=== PATIENT | male | born 1940 | race Caucasian/White ===

== ENCOUNTER 2018-03-09 07:29 | Inpatient (IN) | payer MEDICARE ==
[~2018-03-09] VITALS: Ht 170.2 cm; Wt 85.5 kg
[2018-03-09] MEDS ORDERED: IPRATROPIUM BROMIDE (0.02%) 0.5MG/2.5ML NEB HHN STA ×2 (07:49→09:44)
[2018-03-09] MEDS ORDERED: ALBUTEROL (0.083%) 2.5MG/3ML NEB HHN STA ×2 (07:49→09:44)
[2018-03-09] MEDS ORDERED: METHYLPREDNISOLONE SOD SUCC 125 MG/2 ML VIAL IV STA ×2 (07:49→09:44)
[2018-03-09] MEDS ORDERED: SODIUM CHLORIDE 0.9% 1,000 ML IV ONE (07:54)
[2018-03-09 08:00] LABS: BASOPHILS % 0.5 % (0.0-2.0); EOSINOPHILS % 0.5 % (0.0-5.0); HEMATOCRIT. 38.6 % (42.0-52.0); HEMOGLOBIN. 12.7 g/dL (14.0-18.0); LYMPHOCYTES % 7.8 % (20.0-50.0); MEAN CORPUSCULAR HEMOGLOBIN 31.2 pg (28.0-32.0); MEAN CORPUSCULAR VOLUME 94.6 fL (80.0-94.0); MEAN PLATELET VOLUME 8.7 fl (7.4-10.4); MONOCYTES % 10.8 % (2.0-8.0); NEUTROPHILS % 80.4 % (40.0-76.0); PLATELET 250 x1000/uL (130-400); RED BLOOD CELL COUNT 4.08 mill/uL (4.7-6.1); RED CELL DISTRIBUTION WIDTH 13.6 % (11.6-14.6)
[2018-03-09 08:07] LABS: INR 1.1; PROTHROMBIN TIME 11.3 sec (9.1-11.1)
[2018-03-09 08:20] LABS: BG BASE EXCESS 8.5 mmol/L (-2.0-2.0); BG CARBOXYHEMOGLOBIN 1.7 % (0.5-1.5); BG DEOXYHEMOGLOBIN 5.2 % (0.0-5.0); BG FRACTION INSPIRED OXYGEN 36; BG HCO3 ACT 37.2 mmol/L (22.0-26.0); BG METHEMOGLOBIN 0.3 % (0.0-1.5); BG OXYGEN SATURATION 94.7 % (92.0-98.5); BG OXYHEMOGLOBIN 92.8 % (94.0-97.0); BG PCO2 72.2 mmHg (35.0-45.0); BG PO2 79.1 mmHg (75.0-100.0); BG SAMPLE SITE RIGHT RADIAL; BG TOTAL HEMOGLOBIN 13.5 g/dL (12.0-18.0); BG VENT MODE NASAL CANNULA
[2018-03-09 08:42] LABS: ETHANOL BLOOD < 10 mg/dL
[2018-03-09 08:45] LABS: LDL CHOLESTEROL 36 mg/dL (5-100)
[2018-03-09 08:50] LABS: CHLORIDE 97 mEq/L (98-107)
[2018-03-09] MEDS ORDERED: ALBUTEROL (0.083%) 2.5MG/3ML NEB ONE (08:53)
[2018-03-09] MEDS ORDERED: IPRATROPIUM BROMIDE (0.02%) 0.5MG/2.5ML NEB ONE (08:54)
[2018-03-09] MEDS ORDERED: ASPIRIN 325MG TABLET PO ONE (09:00)
[2018-03-09] MEDS ORDERED: LEVOFLOXACIN 750MG PREMIX 150 ML IV ONE (09:45)
[2018-03-09 10:13] LABS: CLARITY URINE CLEAR (CLEAR); COLOR URINE YELLOW (YELLOW); KETONES URINE TRACE (NEGATIVE); LEUKOCYTE ESTERASE URINE NEGATIVE (NEGATIVE); NITRITE URINE NEGATIVE (NEGATIVE); OCCULT BLOOD URINE 2+ (NEGATIVE); PROTEIN URINE 3+ (NEGATIVE); SPECIFIC GRAVITY URINE 1.032 (1.005-1.030)
[2018-03-09 10:30] LABS: CANNABINOID URINE SCREEN NEGATIVE (NEGATIVE); OPIATES URINE SCREEN NEGATIVE (NEGATIVE); PHENCYCLIDINE URINE SCREEN NEGATIVE (NEGATIVE)
[2018-03-09 10:31] LABS: *AMPHETAMINES SCREEN URINE NEGATIVE (NEGATIVE); *BARBITURATES SCREEN URINE NEGATIVE (NEGATIVE); *BENZODIAZEPINES SCREEN URINE NEGATIVE (NEGATIVE); *COCAINE SCREEN URINE NEGATIVE (NEGATIVE); METHADONE URINE SCREEN NEGATIVE (NEGATIVE)
[2018-03-09] MEDS ORDERED: MAGNESIUM/ALUMINUM HYDROXIDE/SIMETHICONE 30ML UDC PO PRN (11:00)
[2018-03-09] MEDS ORDERED: NITROGLYCERIN 0.4MG TABLET SL SL PRN (11:00)
[2018-03-09] MEDS ORDERED: ACETAMINOPHEN 325MG TABLET PO PRN (11:00)
[2018-03-09] MEDS ORDERED: DOCUSATE SODIUM 100MG CAPSULE PO PRN (11:00)
[2018-03-09] MEDS ORDERED: TRAMADOL 50MG TABLET PO PRN (11:00)
[2018-03-09] MEDS ORDERED: DEXTROSE 50% WATER 50ML SYRINGE IV PRN (11:00)
[2018-03-09] MEDS ORDERED: ONDANSETRON HCL 4MG/2ML INJ IV PRN (11:00)
[2018-03-09] MEDS ORDERED: IPRATROPIUM/ALBUTEROL 0.5-3(2.5)MG/3ML NEB INH PRN (11:00)
[2018-03-09 11:53] LABS: T4 FREE 1.68 ng/dL (0.76-1.46)
[2018-03-09] MEDS: BLOOD SUGAR DIAGNOSTIC STRIP TEST SCH ×3 (13:00→21:50)
[2018-03-09] MEDS: INSULIN LISPRO 100 UNITS/ML SUBCUT SCH ×3 (13:19→21:58)
[2018-03-09] MEDS: ENOXAPARIN 40MG/0.4ML SYR SUBCUT SCH (14:26)
[2018-03-09] MEDS: FAMOTIDINE 20MG TABLET PO SCH (14:26)
[2018-03-09 15:30] VITALS: BP 147/75
[2018-03-09 16:00] VITALS: BP 155/74
[2018-03-09 17:29] LABS: CREATINE KINASE 77 IU/L (39-308)
[2018-03-09 17:30] LABS: CREATINE KINASE MB FRACTION 1.2 ng/mL (0.5-3.6)
[2018-03-09 20:00] VITALS: BP 145/72
[2018-03-09] MEDS: IPRATROPIUM/ALBUTEROL 0.5-3(2.5)MG/3ML NEB HHN SCH (20:40)
[2018-03-09] MEDS ORDERED: ZOLPIDEM TARTRATE 5MG TABLET PO PRN (21:00)
[2018-03-09] MEDS ORDERED: INSULIN GLARGINE UD 100 UNITS/ML SYR SUBCUT SCH (22:00)
[2018-03-09] MEDS: ASCORBIC ACID 500 MG TABLET PO SCH (22:00)
[2018-03-09] MEDS: METHYLPREDNISOLONE SOD SUCC 125 MG/2 ML VIAL IV SCH (22:01)
[2018-03-09 22:20] LABS: CREATINE KINASE 82 IU/L (39-308)
[2018-03-09 22:21] LABS: CREATINE KINASE MB FRACTION 1.3 ng/mL (0.5-3.6)
[2018-03-10] VITALS: BP 140/65
[2018-03-10] MEDS: IPRATROPIUM/ALBUTEROL 0.5-3(2.5)MG/3ML NEB HHN SCH ×4 (01:05→20:57)
[2018-03-10 04:00] VITALS: BP 125/63
[2018-03-10] MEDS: METHYLPREDNISOLONE SOD SUCC 125 MG/2 ML VIAL IV SCH ×2 (07:30→14:30)
[2018-03-10] MEDS: BLOOD SUGAR DIAGNOSTIC STRIP TEST SCH ×4 (07:41→21:00)
[2018-03-10] MEDS: INSULIN LISPRO 100 UNITS/ML SUBCUT SCH ×5 (07:41→22:29)
[2018-03-10 08:04] VITALS: BP 111/52
[2018-03-10] MEDS: ASCORBIC ACID 500 MG TABLET PO SCH ×2 (08:42→22:20)
[2018-03-10] MEDS: ASPIRIN 325MG EC TABLET PO SCH (08:42)
[2018-03-10] MEDS: ZINC SULFATE 220 MG ( 50 ) CAPSULE PO SCH (08:42)
[2018-03-10] MEDS: ENOXAPARIN 40MG/0.4ML SYR SUBCUT SCH (08:42)
[2018-03-10] MEDS: FAMOTIDINE 20MG TABLET PO SCH (08:42)
[2018-03-10] MEDS ORDERED: INFLUENZA VIRUS VACCINE(AFLURIA) 0.5ML SYR IM ONE (09:00)
[2018-03-10 16:20] VITALS: BP 132/56
[2018-03-10] MEDS: NICOTINE 14MG PATCH TD SCH (17:11)
[2018-03-10] MEDS: PREDNISONE 20MG TABLET PO SCH (17:11)
[2018-03-10 20:00] VITALS: BP 158/70
[2018-03-10] MEDS ORDERED: INSULIN GLARGINE UD 100 UNITS/ML SYR SUBCUT SCH (22:00)
[2018-03-10] MEDS: GUAIFENESIN 600MG ER TABLET PO SCH (22:20)
[2018-03-10] MEDS: INSULIN GLARGINE UD 100 UNITS/ML SYR SUBCUT SCH (22:29)
[2018-03-11] VITALS: BP 151/66
[2018-03-11] MEDS: IPRATROPIUM/ALBUTEROL 0.5-3(2.5)MG/3ML NEB HHN SCH ×4 (01:09→19:47)
[2018-03-11 04:00] VITALS: BP 152/75
[2018-03-11] MEDS: BLOOD SUGAR DIAGNOSTIC STRIP TEST SCH ×4 (06:02→21:59)
[2018-03-11] MEDS: INSULIN LISPRO 100 UNITS/ML SUBCUT SCH ×7 (06:09→22:11)
[2018-03-11 07:46] LABS: HEMATOCRIT. 37.6 % (42.0-52.0); HEMOGLOBIN. 12.6 g/dL (14.0-18.0); MEAN CORPUSCULAR HEMOGLOBIN 31.3 pg (28.0-32.0); MEAN CORPUSCULAR VOLUME 93.4 fL (80.0-94.0); MEAN PLATELET VOLUME 9.4 fl (7.4-10.4); PLATELET 259 x1000/uL (130-400); RED BLOOD CELL COUNT 4.02 mill/uL (4.7-6.1); RED CELL DISTRIBUTION WIDTH 13.7 % (11.6-14.6)
[2018-03-11] MEDS: PREDNISONE 20MG TABLET PO SCH ×2 (08:39→17:12)
[2018-03-11] MEDS: FAMOTIDINE 20MG TABLET PO SCH (08:39)
[2018-03-11] MEDS: ZINC SULFATE 220 MG ( 50 ) CAPSULE PO SCH (08:39)
[2018-03-11] MEDS: ASCORBIC ACID 500 MG TABLET PO SCH ×2 (08:39→21:59)
[2018-03-11] MEDS: GUAIFENESIN 200MG/10ML SUGAR FREE UDC PO PRN (08:39)
[2018-03-11] MEDS: ENOXAPARIN 40MG/0.4ML SYR SUBCUT SCH (08:40)
[2018-03-11] MEDS: ASPIRIN 325MG EC TABLET PO SCH (08:49)
[2018-03-11] MEDS: GUAIFENESIN 600MG ER TABLET PO SCH ×2 (08:49→21:59)
[2018-03-11] MEDS: NICOTINE 14MG PATCH TD SCH (08:50)
[2018-03-11] MEDS: BUDESONIDE 0.5MG/2ML NEB HHN SCH ×2 (09:24→21:00)
[2018-03-11 11:04] VITALS: BP 149/67
[2018-03-11 12:00] VITALS: BP 155/73
[2018-03-11] MEDS: LEVOFLOXACIN 750MG PREMIX 150 ML IV SCH (13:35)
[2018-03-11 16:00] VITALS: BP 136/79
[2018-03-11 20:00] VITALS: BP 100/66
[2018-03-11 20:16] LABS: PLATELET ESTIMATE NORMAL
[2018-03-11] MEDS: INSULIN GLARGINE UD 100 UNITS/ML SYR SUBCUT SCH (22:11)
[2018-03-12] VITALS (7 sets, daily range): BP systolic 137–170; BP diastolic 60–91
[2018-03-12] MEDS: CLONIDINE 0.1MG TABLET PO PRN ×3 (01:13→14:36)
[2018-03-12] MEDS: IPRATROPIUM/ALBUTEROL 0.5-3(2.5)MG/3ML NEB HHN SCH ×4 (01:47→20:35)
[2018-03-12] MEDS: BLOOD SUGAR DIAGNOSTIC STRIP TEST SCH ×4 (06:07→21:14)
[2018-03-12] MEDS: INSULIN LISPRO 100 UNITS/ML SUBCUT SCH ×7 (06:22→21:26)
[2018-03-12] MEDS: BUDESONIDE 0.5MG/2ML NEB HHN SCH ×2 (08:12→20:35)
[2018-03-12] MEDS: FAMOTIDINE 20MG TABLET PO SCH (09:15)
[2018-03-12] MEDS: ZINC SULFATE 220 MG ( 50 ) CAPSULE PO SCH (09:16)
[2018-03-12] MEDS: PREDNISONE 20MG TABLET PO SCH (09:16)
[2018-03-12] MEDS: NICOTINE 14MG PATCH TD SCH (09:16)
[2018-03-12] MEDS: GUAIFENESIN 600MG ER TABLET PO SCH ×2 (09:16→21:19)
[2018-03-12] MEDS: ENOXAPARIN 40MG/0.4ML SYR SUBCUT SCH (09:16)
[2018-03-12] MEDS: ASPIRIN 325MG EC TABLET PO SCH (09:16)
[2018-03-12] MEDS: ASCORBIC ACID 500 MG TABLET PO SCH ×2 (09:16→21:19)
[2018-03-12 09:34] LABS: BG BASE EXCESS 11.5 mmol/L (-2.0-2.0); BG CARBOXYHEMOGLOBIN 1.2 % (0.5-1.5); BG DEOXYHEMOGLOBIN 14.3 % (0.0-5.0); BG FRACTION INSPIRED OXYGEN 21; BG HCO3 ACT 38.1 mmol/L (22.0-26.0); BG METHEMOGLOBIN 0.3 % (0.0-1.5); BG OXYGEN SATURATION 85.5 % (92.0-98.5); BG OXYHEMOGLOBIN 84.2 % (94.0-97.0); BG PCO2 58.1 mmHg (35.0-45.0); BG PH 7.435 (7.350-7.450); BG PO2 49.9 mmHg (75.0-100.0); BG SAMPLE SITE RIGHT RADIAL; BG TOTAL HEMOGLOBIN 13.7 g/dL (12.0-18.0); BG VENT MODE ROOM AIR
[2018-03-12] MEDS: GUAIFENESIN 200MG/10ML SUGAR FREE UDC PO PRN (17:28)
[2018-03-12] MEDS: INSULIN GLARGINE UD 100 UNITS/ML SYR SUBCUT SCH (21:26)
[2018-03-12 21:54] LABS: FOLIC ACID (FOLATE) SERUM 5.8 ng/mL (>5.38)
[2018-03-13] VITALS: BP 162/77
[2018-03-13] MEDS: CLONIDINE 0.1MG TABLET PO PRN (00:20)
[2018-03-13 04:00] VITALS: BP 151/81
[2018-03-13] MEDS: BLOOD SUGAR DIAGNOSTIC STRIP TEST SCH ×4 (06:01→20:46)
[2018-03-13] MEDS: INSULIN LISPRO 100 UNITS/ML SUBCUT SCH ×7 (06:01→20:55)
[2018-03-13 08:00] VITALS: BP 162/76
[2018-03-13] MEDS: IPRATROPIUM/ALBUTEROL 0.5-3(2.5)MG/3ML NEB HHN SCH ×3 (08:29→21:04)
[2018-03-13] MEDS: BUDESONIDE 0.5MG/2ML NEB HHN SCH ×4 (08:29→12:21)
[2018-03-13] MEDS: ZINC SULFATE 220 MG ( 50 ) CAPSULE PO SCH (09:53)
[2018-03-13] MEDS: FAMOTIDINE 20MG TABLET PO SCH (09:53)
[2018-03-13] MEDS: PREDNISONE 20MG TABLET PO SCH (09:53)
[2018-03-13] MEDS: ASPIRIN 325MG EC TABLET PO SCH (09:53)
[2018-03-13] MEDS: GUAIFENESIN 600MG ER TABLET PO SCH ×2 (09:53→20:35)
[2018-03-13] MEDS: ASCORBIC ACID 500 MG TABLET PO SCH ×2 (09:53→20:35)
[2018-03-13] MEDS: NICOTINE 14MG PATCH TD SCH (09:54)
[2018-03-13] MEDS: ENOXAPARIN 40MG/0.4ML SYR SUBCUT SCH (09:55)
[2018-03-13 12:00] VITALS: BP 167/76
[2018-03-13] MEDS: LEVOFLOXACIN 750MG PREMIX 150 ML IV SCH (12:48)
[2018-03-13 16:00] VITALS: BP 142/69
[2018-03-13 20:00] VITALS: BP 155/71
[2018-03-13] MEDS: INSULIN GLARGINE UD 100 UNITS/ML SYR SUBCUT SCH (21:58)
[2018-03-14] VITALS: BP 148/60
[2018-03-14] MEDS: IPRATROPIUM/ALBUTEROL 0.5-3(2.5)MG/3ML NEB HHN SCH ×4 (00:53→20:58)
[2018-03-14 04:00] VITALS: BP 138/52
[2018-03-14] MEDS: BLOOD SUGAR DIAGNOSTIC STRIP TEST SCH ×4 (06:12→20:57)
[2018-03-14] MEDS: INSULIN LISPRO 100 UNITS/ML SUBCUT SCH ×6 (06:41→21:11)
[2018-03-14 08:00] VITALS: BP 135/69
[2018-03-14] MEDS: ASCORBIC ACID 500 MG TABLET PO SCH ×2 (10:20→20:41)
[2018-03-14] MEDS: ZINC SULFATE 220 MG ( 50 ) CAPSULE PO SCH (10:20)
[2018-03-14] MEDS: PREDNISONE 20MG TABLET PO SCH (10:20)
[2018-03-14] MEDS: GUAIFENESIN 600MG ER TABLET PO SCH ×2 (10:20→20:41)
[2018-03-14] MEDS: FAMOTIDINE 20MG TABLET PO SCH (10:20)
[2018-03-14] MEDS: ENOXAPARIN 40MG/0.4ML SYR SUBCUT SCH (10:21)
[2018-03-14] MEDS: NICOTINE 14MG PATCH TD SCH (10:22)
[2018-03-14] MEDS: ASPIRIN 325MG EC TABLET PO SCH (10:28)
[2018-03-14 12:00] VITALS: BP_SYST 107; BP_SYST 144; BP_DIAS 62; BP_DIAS 72
[2018-03-14 16:00] VITALS: BP 140/73
[2018-03-14] MEDS: GUAIFENESIN 200MG/10ML SUGAR FREE UDC PO PRN (18:30)
[2018-03-14 20:00] VITALS: BP 141/75
[2018-03-14] MEDS: INSULIN GLARGINE UD 100 UNITS/ML SYR SUBCUT SCH (21:11)
[2018-03-15] MEDS: IPRATROPIUM/ALBUTEROL 0.5-3(2.5)MG/3ML NEB HHN SCH ×4 (02:03→21:34)
[2018-03-15 04:00] VITALS: BP 125/63
[2018-03-15] MEDS: INSULIN LISPRO 100 UNITS/ML SUBCUT SCH ×7 (06:56→20:47)
[2018-03-15] MEDS: BLOOD SUGAR DIAGNOSTIC STRIP TEST SCH ×4 (06:56→20:48)
[2018-03-15 07:30] VITALS: BP 152/81
[2018-03-15] MEDS: FAMOTIDINE 20MG TABLET PO SCH (09:19)
[2018-03-15] MEDS: ASCORBIC ACID 500 MG TABLET PO SCH ×2 (09:19→20:43)
[2018-03-15] MEDS: ZINC SULFATE 220 MG ( 50 ) CAPSULE PO SCH (09:19)
[2018-03-15] MEDS: GUAIFENESIN 600MG ER TABLET PO SCH ×2 (09:19→20:43)
[2018-03-15] MEDS: ENOXAPARIN 40MG/0.4ML SYR SUBCUT SCH (09:20)
[2018-03-15] MEDS: ASPIRIN 325MG EC TABLET PO SCH (09:20)
[2018-03-15] MEDS: PREDNISONE 20MG TABLET PO SCH (09:32)
[2018-03-15] MEDS: NICOTINE 14MG PATCH TD SCH (09:32)
[2018-03-15] MEDS: LEVOFLOXACIN 750MG PREMIX 150 ML IV SCH (09:40)
[2018-03-15 09:43] LABS: HEMATOCRIT 40.6 % (42.0-52.0); HEMOGLOBIN 13.8 g/dL (14.0-18.0); MEAN CORPUSCULAR HEMOGLOBIN 31.6 pg (28.0-32.0); MEAN CORPUSCULAR VOLUME 93.2 fL (80.0-94.0); PLATELET 256 x1000/uL (130-400); RED BLOOD CELL COUNT 4.35 mill/uL (4.7-6.1); RED CELL DISTRIBUTION WIDTH 13.7 % (11.6-14.6)
[2018-03-15 12:00] VITALS: BP 150/80
[2018-03-15 12:20] LABS: CHLORIDE 102 mEq/L (98-107)
[2018-03-15 15:30] VITALS: BP 148/75
[2018-03-15 20:00] VITALS: BP 151/67
[2018-03-15] MEDS: INSULIN GLARGINE UD 100 UNITS/ML SYR SUBCUT SCH (20:48)
[2018-03-16] VITALS (7 sets, daily range): BP systolic 135–153; BP diastolic 67–82
[2018-03-16] MEDS: IPRATROPIUM/ALBUTEROL 0.5-3(2.5)MG/3ML NEB HHN SCH ×4 (02:06→20:11)
[2018-03-16] MEDS: INSULIN LISPRO 100 UNITS/ML SUBCUT SCH ×7 (05:52→21:30)
[2018-03-16] MEDS: BLOOD SUGAR DIAGNOSTIC STRIP TEST SCH ×4 (05:52→21:31)
[2018-03-16 07:41] LABS: HEMATOCRIT 37.7 % (42.0-52.0); HEMOGLOBIN 12.8 g/dL (14.0-18.0); MEAN CORPUSCULAR HEMOGLOBIN 31.9 pg (28.0-32.0); MEAN CORPUSCULAR VOLUME 93.7 fL (80.0-94.0); PLATELET 221 x1000/uL (130-400); RED BLOOD CELL COUNT 4.02 mill/uL (4.7-6.1); RED CELL DISTRIBUTION WIDTH 13.9 % (11.6-14.6)
[2018-03-16] MEDS: ZINC SULFATE 220 MG ( 50 ) CAPSULE PO SCH (09:52)
[2018-03-16] MEDS: FAMOTIDINE 20MG TABLET PO SCH (09:52)
[2018-03-16] MEDS: NICOTINE 14MG PATCH TD SCH (09:52)
[2018-03-16] MEDS: ENOXAPARIN 40MG/0.4ML SYR SUBCUT SCH (09:52)
[2018-03-16] MEDS: ASPIRIN 325MG EC TABLET PO SCH (09:52)
[2018-03-16] MEDS: PREDNISONE 20MG TABLET PO SCH (09:52)
[2018-03-16] MEDS: ASCORBIC ACID 500 MG TABLET PO SCH ×2 (09:52→21:29)
[2018-03-16] MEDS: GUAIFENESIN 600MG ER TABLET PO SCH ×2 (09:55→21:29)
[2018-03-16] MEDS: LEVOFLOXACIN 500MG PREMIX 100 ML IV SCH (09:56)
[2018-03-16] MEDS: INSULIN GLARGINE UD 100 UNITS/ML SYR SUBCUT SCH (21:31)
[2018-03-17] VITALS: BP 164/81
[2018-03-17] MEDS: IPRATROPIUM/ALBUTEROL 0.5-3(2.5)MG/3ML NEB HHN SCH ×3 (01:49→14:33)
[2018-03-17 04:30] VITALS: BP 162/78
[2018-03-17] MEDS: CLONIDINE 0.1MG TABLET PO PRN (04:56)
[2018-03-17] MEDS: INSULIN LISPRO 100 UNITS/ML SUBCUT SCH ×6 (06:35→16:56)
[2018-03-17] MEDS: BLOOD SUGAR DIAGNOSTIC STRIP TEST SCH ×3 (06:35→16:51)
[2018-03-17 07:57] LABS: HEMATOCRIT 39.5 % (42.0-52.0); HEMOGLOBIN 13.1 g/dL (14.0-18.0); MEAN CORPUSCULAR HEMOGLOBIN 31.1 pg (28.0-32.0); MEAN CORPUSCULAR VOLUME 94.2 fL (80.0-94.0); PLATELET 230 x1000/uL (130-400)
[2018-03-17] MEDS: ASPIRIN 325MG EC TABLET PO SCH (08:16)
[2018-03-17] MEDS: NICOTINE 14MG PATCH TD SCH (08:16)
[2018-03-17] MEDS: GUAIFENESIN 600MG ER TABLET PO SCH (08:16)
[2018-03-17] MEDS: FAMOTIDINE 20MG TABLET PO SCH (08:16)
[2018-03-17] MEDS: ZINC SULFATE 220 MG ( 50 ) CAPSULE PO SCH (08:16)
[2018-03-17] MEDS: ASCORBIC ACID 500 MG TABLET PO SCH (08:16)
[2018-03-17] MEDS: ENOXAPARIN 40MG/0.4ML SYR SUBCUT SCH (08:17)
[2018-03-17 09:00] VITALS: BP 138/71
[2018-03-17] MEDS ORDERED: PREDNISONE 20MG TABLET PO SCH (09:00)
[2018-03-17 10:27] VITALS: BP 138/71
[2018-03-17] MEDS: LEVOFLOXACIN 500MG PREMIX 100 ML IV SCH (11:31)
[2018-03-17 12:21] VITALS: BP 153/78
[2018-03-17 16:42] VITALS: BP 141/71
[2018-03-18] MEDS ORDERED: LEVOFLOXACIN 500MG TABLET PO SCH (11:00)
== END 2018-03-17 17:20 | disposition home or self-care (01) | DRG 193 ==
LOC: ER 08:23 → 8WST 09:58 → EDBEDREQTM 10:04 → EDBEDREQ 10:04 → EDBEDREQSVC 10:04 → SUPCPDRO 10:55 → ENRESERV 12:11 → CMPBEDREQ 12:17
PROVIDERS: ADMIT Internal Medicine; ATTEND Internal Medicine
DX: J18.9 Pneumonia, unspecified organism (principal); E43 Unspecified severe protein-calorie malnutrition; J96.01 Acute respiratory failure with hypoxia; J96.02 Acute respiratory failure with hypercapnia; J44.1 Chronic obstructive pulmonary disease with (acute) exacerbation; J44.0 Chronic obstructive pulmonary disease with (acute) lower respiratory infection; E87.2 Acidosis; I10 Essential (primary) hypertension; E11.41 Type 2 diabetes mellitus with diabetic mononeuropathy; E11.65 Type 2 diabetes mellitus with hyperglycemia; E78.00 Pure hypercholesterolemia, unspecified; T38.0X5A Adverse effect of glucocorticoids and synthetic analogues, initial encounter; E78.5 Hyperlipidemia, unspecified; F17.210 Nicotine dependence, cigarettes, uncomplicated; Z79.82 Long term (current) use of aspirin; Z86.73 Personal history of transient ischemic attack (TIA), and cerebral infarction without residual deficits; Z99.81 Dependence on supplemental oxygen; Z71.6 Tobacco abuse counseling; W18.39XA Other fall on same level, initial encounter; Y93.89 Activity, other specified; Y92.89 Other specified places as the place of occurrence of the external cause; Y99.8 Other external cause status; Z68.29 Body mass index [BMI] 29.0-29.9, adult
CPT/HCPCS: 36415; 36600; 70551; 71045; 80048; 80061; 80305; 82375; 82550; 82553; 82607; 82746; 82805; 82962; 83036; 83540; 83550; 83605; 83721; 84145; 84439; 84443; 84484; 85027; 93005; 93306; 93880; 93923; 93970; 94640; 96361; 96365; 96366; 97162; 97166; 99291; G0482; J1650; J1815; J1956; J2930; J7030; J7512; J7611; J7620; J7626